=== PATIENT | male | born 1995 | race Caucasian/White ===

== ENCOUNTER 2016-05-22 06:12 | Emergency (ER) | payer SELFPAY ==
[2016-05-22 06:40] VITALS: BP 99/71; PULSE 73; TEMP 97.1; BMI 25.1
[2016-05-22] MEDS ORDERED: SODIUM CHLORIDE 1,000 ML IV STA (07:27)
[2016-05-22] MEDS ORDERED: KETOROLAC TROMETHAMINE 30 MG/1 ML VIAL IVPUSH ONE (07:27)
--- NOTE | 2016-05-22 07:27 | PDOC ---
[id number] No Limitations - History of Present Illness Initial Comments: 05/22/16 07:36 The patient is a 20-year-old man, accompanied by friend, with no past medical history who presents to the emergency department via walk-in for further evaluation of left sided abdominal pain since 05:00 AM this morning. No fall, trauma. He notes that he has been experiencing burning upon urination, intermittently, for the past few months. He admits, he had not sought further medical evaluation for this symptoms.No ntes foul smelling urine. He reports that this morning, he suddenly felt left sided abdominal pain. He is unable to describe the nature of the pain but notes that it is radiating down his left lower quadrant and into his left testicle. He rates his pain a 10/10 with no exacerbating factors. He did not take any medicattiosn to help alleviate his pain. No fever, chills, cough, shortness of breath, nausea, vomiting, diarrhea. No history of kidney stones. Allergies: No Known Drug Allergies. Past Surgical History: None reported Social History: No tobacco, ETOH and recreational drug use. <Liz Torres - Last Filed: 05/22/16 07:36> <Paula Juarez - Last Filed: 05/22/16 12:21> - General Chief Complaint: Pain, Acute Stated Complaint: PAIN TO LOWER VACK Time Seen by Provider: 05/22/16 07:16 Past History <Liz Torres - Last Filed: 05/22/16 07:36> - Past Medical History Other medical history: denies - Psycho/Social/Smoking Cessation Hx Suicidal Ideation: No Smoking History: Never smoked <Paula Juarez - Last Filed: 05/22/16 12:21> - Past Medical History Allergies/Adverse Reactions: Allergies Allergy/AdvReac Type Severity Reaction Status Date / Time No Known Allergies Allergy Verified 05/22/16 06:34 Home Medications: Ambulatory Orders Ibuprofen [Motrin -] 600 mg PO TID PRN #21 tablet 05/22/16 Oxycodone HCl/Acetaminophen [Percocet 5-325 mg Tablet] 1 tab PO Q6H PRN #12 tablet MDD 4 tabs 05/22/16 Tamsulosin HCl [Flomax] 0.4 mg PO HS #14 capsule 05/22/16 Review of Systems - Review of Systems Able to Perform ROS?: Yes Comments:: 05/22/16 07:36 GENERAL/CONSTITUTIONAL: No fever or chills. No weakness. HEAD, EYES, EARS, NOSE AND THROAT: No change in vision. No ear pain or discharge. No sore throat. CARDIOVASCULAR: No chest pain or shortness of breath. RESPIRATORY: No cough, wheezing, or hemoptysis. GASTROINTESTINAL: Yes: Abdominal Pain. No nausea, vomiting, diarrhea or constipation. GENITOURINARY: Yes: Dysuria. Testicular Discomfort. No frequency, or change in urination. MUSCULOSKELETAL: No joint or muscle swelling or pain. No neck or back pain. SKIN: No rash NEUROLOGIC: No headache, vertigo, loss of consciousness, or change in strength/ sensation. ENDOCRINE: No increased thirst. No abnormal weight change. HEMATOLOGIC/LYMPHATIC: No anemia, easy bleeding, or history of blood clots. ALLERGIC/IMMUNOLOGIC: No hives or skin allergy. <Liz Torres - Last Filed: 05/22/16 07:36> *Physical Exam - Vital Signs Last Vital Signs Temp Pulse Resp BP Pulse Ox 97.1 F L 73 18 99/71 100 05/22/16 06:34 05/22/16 06:34 05/22/16 06:34 05/22/16 06:34 05/22/16 06:34 - Physical Exam Comments: 05/22/16 07:37 GENERAL: Awake, alert, and fully oriented. Appears uncomfortable. HEAD: No signs of trauma EYES: PERRLA, EOMI, sclera anicteric, conjunctiva clear ENT: Auricles normal inspection, hearing grossly normal, nares patent, oropharynx clear without exudates. Moist mucosa NECK: Normal ROM, supple, no lymphadenopathy, JVD, or masses LUNGS: Breath sounds equal, clear to auscultation bilaterally. No wheezes, and no crackles HEART: Regular rate and rhythm, normal S1 and S2, no murmurs, rubs or gallops ABDOMEN: Soft, there is some left lower quadrant and left sided tenderness to palpation, normoactive bowel sounds. No guarding, no rebound. No masses EXTREMITIES: Normal range of motion, no edema. No clubbing or cyanosis. No cords, erythema, or tenderness NEUROLOGICAL: Cranial nerves II through XII grossly intact. Normal speech <Torres,Liz - Last Filed: 05/22/16 07:36> - Vital Signs Last Vital Signs Temp Pulse Resp BP Pulse Ox 97.1 F L 73 18 99/71 100 05/22/16 06:34 05/22/16 06:34 05/22/16 06:34 05/22/16 06:34 05/22/16 06:34 <Paula Juarez - Last Filed: 05/22/16 12:21> ED Treatment Course - LABORATORY CBC & Chemistry Diagram: 05/22/16 07:54 05/22/16 07:54 <Paula Juarez - Last Filed: 05/22/16 12:21> Medical Decision Making - Medical Decision Making 05/22/16 11:12 Pt reports improvement in symptoms. Stable for DC home with outpatient urology f /u. Will start on flomax. <Paula Juarez - Last Filed: 05/22/16 12:21> *DC/Admit/Observation/Transfer - Attestations Scribe Attestion: 05/22/16 07:37 Documentation prepared by Liz Torres, acting as medical research tech for Paula Juarez MD. <Liz Torres - Last Filed: 05/22/16 07:36> - Discharge Dispostion Admit: No <Paula Juarez - Last Filed: 05/22/16 12:21> Diagnosis at time of Disposition: Kidney stone on left side - Discharge Dispostion Disposition: HOME Condition at time of disposition: Stable - Prescriptions Prescriptions: Tamsulosin HCl [Flomax] 0.4 mg PO HS #14 capsule Ibuprofen [Motrin -] 600 mg PO TID PRN #21 tablet PRN Reason: Pain Oxycodone HCl/Acetaminophen [Percocet 5-325 mg Tablet] 1 tab PO Q6H PRN #12 tablet MDD 4 tabs PRN Reason: Severe Pain - Referrals Referrals: Km Hartman MD., MD [Staff Physician] - - Patient Instructions Printed Discharge Instructions: DI for Kidney Stones
[2016-05-22] MEDS ORDERED: KETOROLAC TROMETHAMINE 30 MG/1 ML VIAL ONE (07:58)
[2016-05-22 08:17] LABS: BASOPHIL 0.8 % (0-2.0); EOSINOPHIL 2.5 % (0-4.5); MCH 28.5 pg (25.7-33.7); MEAN CELL VOLUME 86.4 fl (80-96); MEAN PLT VOLUME 6.9 fl (7.5-11.1); NEUTROPHILS 68.5 % (42.8-82.8); PLATELET COUNT 227 K/MM3 (134-434); WHITE BLOOD COUNT 11.4 K/mm3 (4.0-10.0)
[2016-05-22 08:19] LABS: URINE APPEARANCE CLEAR; URINE BILIRUBIN NEGATIVE (NEGATIVE); URINE COLOR YELLOW; URINE GLUCOSE (UA) NEGATIVE (NEGATIVE); URINE KETONE NEGATIVE (NEGATIVE); URINE LEUK ESTERASE NEGATIVE (NEGATIVE); URINE NITRITE NEGATIVE (NEGATIVE); URINE UROBILINOGEN NEGATIVE E.U./dl (0.2-1.0)
[2016-05-22 08:21] LABS: URINE BLOOD 3+ (NEGATIVE); URINE PROTEIN 1+ (NEGATIVE)
[2016-05-22 08:23] LABS: URINE BACTERIA RARE /hpf (NONE SEEN); URINE MUCUS MODERATE; URINE RBC 466 /hpf (0-3); URINE WBC 11 /hpf (3-5)
[2016-05-22 08:44] LABS: ALBUMIN 4.2 g/dl (3.4-5.0); ANION GAP 9 (8-16); BILIRUBIN,TOTAL 0.3 mg/dL (0.2-1.0); CALCIUM 8.7 mg/dL (8.5-10.1); CO2 28 mmol/L (21-32); COCKROFT - GAULT 105.5; GLUCOSE,RANDOM 97 mg/dL (74-106); SGOT/AST 15 U/L (15-37); SGPT/ALT 22 U/L (12-78)
[2016-05-22 08:45] LABS: ALK PHOS 93 U/L (45-117)
== END 2016-05-22 11:37 | disposition home or self-care (01) ==
LOC: JER 06:12
PROC: 3E0333Z Introduction of Anti-inflammatory into Peripheral Vein, Percutaneous Approach (ICD-10-PCS; principal; 2016-05-22)
PROC: 3E0337Z Introduction of Electrolytic and Water Balance Substance into Peripheral Vein, Percutaneous Approach (ICD-10-PCS; 2016-05-22)
DX: N23 Unspecified renal colic (principal)
CPT/HCPCS: 36415; 74176; 80053; 81003; 81015; 85025; 99282-25